=== PATIENT | female | born 1965 | race African-American/Black ===

== ENCOUNTER → 2021-05-25 | Outpatient (CLI) | payer OTHER ==
[~2021-05-25] MED LIST: GLIPIZIDE ER5 MG PO; Indomethacin PO; LOSARTAN POTAS100 MG PO; METFORMIN HCL500 MG PO; ROBAXIN-750750 MG PO
== END ==
LOC: MAMMO 08:39
PROVIDERS: ATTEND Internal Medicine
DX: Z12.31 Encounter for screening mammogram for malignant neoplasm of breast (principal)
CPT/HCPCS: 77067

== ENCOUNTER → 2021-06-08 | Outpatient (CLI) | payer OTHER | LOC: MAMMO 12:13 | PROVIDERS: ATTEND Internal Medicine | DX: N64.89 Other specified disorders of breast (principal) ==